=== PATIENT | male | born 1950 | race Two or more races ===

== ENCOUNTER 2023-02-13 09:50 | Emergency (ER) | payer BC, OTHER ==
[~2023-02-13] VITALS: Ht 162.6 cm; Wt 74.0 kg
[2023-02-13] MEDS ORDERED: IOHEXOL 300 MG/ML 100ML BOTTLE IJ ONE (10:21)
[2023-02-13 10:42] LABS: Basophils # (auto) 0 10 ^3/uL (0-0.2); Basophils % (auto) 0.5 % (0.0-2.0); Eosinophils # (auto) 0 10 ^3/uL (0-0.8); Eosinophils % (auto) 0.4 % (0.0-7.0); Hematocrit 41.9 % (41.0-53.0); Hemoglobin 14.6 g/dL (13.5-17.5); Lymphocytes % (auto) 12.5 % (10.0-50.0); Mean Corpuscular Hemoglobin 32.5 pg (28.0-32.0); Mean Corpuscular Hgb Conc. 34.7 g/dL (32.0-36.0); Mean Corpuscular Volume 93.5 fL (80.0-100.0); Monocytes # (auto) 0.3 10 ^3/uL (0-1.3); Monocytes % (auto) 4.3 % (0.0-12.0); Neutrophils # (auto) 6.6 10 ^3/uL (1.6-8.6); Neutrophils % (auto) 82.3 % (37.0-80.0); Nucleated Red Blood Cells % 0.2 %; Red Blood Cells 4.48 10^6/uL (4.5-5.90); Red Cell Distribution Width 13.2 % (11.8-14.3)
[2023-02-13] MEDS ORDERED: ETOMIDATE (2MG/ML) 20ML VIAL IV ONE ×2 (10:58→11:15)
[2023-02-13] MEDS ORDERED: ROCURONIUM 10MG/ML 10ML VIAL IV ONE ×2 (10:59→11:15)
[2023-02-13] MEDS ORDERED: fentaNYL CITRATE 100 MCG/2 ML VL IV ONE (11:00)
[2023-02-13] MEDS ORDERED: PROPOFOL 100 ML IV ONE (11:03)
[2023-02-13] MEDS ORDERED: fentaNYL CITRATE 100 MCG/2 ML VL ONE (11:03)
[2023-02-13 11:05] LABS: INR 0.98 (0.9-1.15)
[2023-02-13 11:15] LABS: Acetaminophen 3.6 ug/mL (10-30); Salicylate < 1.7 mg/dL (2.8-20.0)
[2023-02-13 11:16] LABS: Albumin 3.9 g/dL (3.4-5.0); Blood Urea Nitrogen 19 mg/dL (7-18); Chloride 105 mmol/L (98-107); Magnesium 1.5 mg/dL (1.6-2.6); Potassium 4.4 mmol/L (3.5-5.1); Sodium 135 mmol/L (136-145)
[2023-02-13 11:22] LABS: Alanine Aminotransferase 28 U/L (16-61); Alkaline Phosphatase 125 U/L (45-117); Anion Gap 6 (5-15); Aspartate Aminotransferase 25 U/L (15-37); BUN/Creatinine Ratio 20.2 (10.0-20.0); Bilirubin, Total 0.4 mg/dL (0.2-1.0); Blood Alcohol < 3.0 mg/dL (0-5); Calcium 9.1 mg/dL (8.5-10.1); Carbon Dioxide 24 mmol/L (21-32); GFR African American 101 mL/min; GFR Non-African American 83 mL/min; Glucose 203 mg/dL (74-106); Lipase 276 U/L (73-393); Total Protein 7.1 g/dL (6.4-8.2)
[2023-02-13 11:50] VITALS: BP 150/81
[2023-02-13] MEDS ORDERED: PROPOFOL 100 ML IV SCH (12:00)
[2023-02-13] MEDS ORDERED: NALOXONE HCL 1MG/ML 2ML SYRINGE IV ONE ×2 (13:45)
== END 2023-02-13 12:48 | disposition short-term general hospital (02) ==
LOC: ER 09:50
DX: I62.9 Nontraumatic intracranial hemorrhage, unspecified (principal); R41.82 Altered mental status, unspecified; E11.9 Type 2 diabetes mellitus without complications; I10 Essential (primary) hypertension
CPT/HCPCS: 31500; 36415; 70450; 71045; 80053; 80320; 80329; 82140; 83690; 83735; 83880; 84100; 84443; 84484; 85025; 85610; 86850; 86900; 86901; 93005; 96374; 96375; 99291; J2704; J3010; 94002; 99152

== ENCOUNTER 2023-03-08 20:16 | Inpatient (IN) | payer OTHER ==
[~2023-03-08] VITALS: Ht 30.5 cm; Wt 82.6 kg
[2023-03-09] VITALS (7 sets, daily range): BP systolic 126–140; BP diastolic 78–89
[2023-03-09] MEDS ORDERED: ACETAMINOPHEN 325 MG TAB PO PRN (03:15)
[2023-03-09] MEDS: SODIUM CHLORIDE 0.9% 1,000 ML IV SCH ×2 (03:15→16:35)
[2023-03-09] MEDS ORDERED: ONDANSETRON HCL 4 MG/2 ML VIAL IV PRN (03:15)
[2023-03-09] MEDS ORDERED: MORPHINE SULFATE INJ 2 MG/ml SYRG IV PRN (03:15)
[2023-03-09] MEDS ORDERED: NITROGLYCERIN 0.4 MG SL TAB SL PRN (03:15)
[2023-03-09] MEDS: SODIUM CHLORIDE 1 GM TAB PO SCH ×3 (05:34→22:04)
[2023-03-09 05:57] LABS: Basophils # (auto) 0 10 ^3/uL (0-0.2); Basophils % (auto) 0.6 % (0.0-2.0); Eosinophils # (auto) 0.4 10 ^3/uL (0-0.8); Eosinophils % (auto) 4.9 % (0.0-7.0); Hematocrit 34.9 % (41.0-53.0); Hemoglobin 11.8 g/dL (13.5-17.5); Lymphocytes # (auto) 1.5 10 ^3/uL (0.4-5.4); Lymphocytes % (auto) 18.3 % (10.0-50.0); Mean Corpuscular Hemoglobin 31.7 pg (28.0-32.0); Mean Corpuscular Hgb Conc. 33.9 g/dL (32.0-36.0); Mean Corpuscular Volume 93.7 fL (80.0-100.0); Monocytes # (auto) 0.6 10 ^3/uL (0-1.3); Monocytes % (auto) 7.7 % (0.0-12.0); Neutrophils # (auto) 5.5 10 ^3/uL (1.6-8.6); Neutrophils % (auto) 68.5 % (37.0-80.0); Nucleated Red Blood Cells % 0.2 %; Red Blood Cells 3.72 10^6/uL (4.5-5.90); Red Cell Distribution Width 13.3 % (11.8-14.3); White Blood Cell 8.1 10^3/uL (4.4-10.8)
[2023-03-09 06:01] LABS: INR 1.06 (0.9-1.15); Partial Thromboplastin Time 27.1 sec (24.6-33.4)
[2023-03-09 06:13] LABS: Albumin 2.1 g/dL (3.4-5.0); Calcium 8.8 mg/dL (8.5-10.1); Potassium 4.3 mmol/L (3.5-5.1)
[2023-03-09 06:18] LABS: BUN/Creatinine Ratio 36.4 (10.0-20.0); Bilirubin, Total 0.4 mg/dL (0.2-1.0); Total Protein 6.4 g/dL (6.4-8.2)
[2023-03-09] MEDS ORDERED: PANTOPRAZOLE 40 MG/10 ML VIAL INJ IV SCH (10:00)
[2023-03-09] MEDS: METOPROLOL TARTRATE 25 MG TAB PO SCH ×2 (10:28→22:03)
[2023-03-09] MEDS: FLUCONAZOLE 100 MG TAB PO SCH (10:28)
[2023-03-09] MEDS: ENOXAPARIN SOD 40 MG/0.4 ML SYRINGE SC SCH (10:28)
[2023-03-09] MEDS: levETIRAcetam 500 MG/5ML ORAL SOLN UD GT SCH ×2 (10:32→22:04)
[2023-03-09] MEDS ORDERED: DEXTROSE (50%) 50ML SYRG IV PRN (16:00)
[2023-03-09] MEDS: InsuLIN REG 1unit/0.01ml Soln (100units/ml) SC SCH ×2 (17:00→22:00)
[2023-03-09] MEDS: ACCU-CHEK COMFORT CURVE STRIP VI SCH ×2 (17:00→22:03)
[2023-03-09 21:50] LABS: Urine Bacteria NONE SEEN /hpf (None Seen); Urine Blood Negative /uL (Negative); Urine Hyaline Cast FEW /lpf (0 - 2); Urine Specific Gravity 1.018 (1.001-1.035); Urine WBC 1 /hpf (0 - 3)
[2023-03-09] MEDS: ATORVASTATIN 20 MG TAB PO SCH (22:04)
[2023-03-10 05:26] VITALS: BP 117/81
[2023-03-10] MEDS: SODIUM CHLORIDE 0.9% 1,000 ML IV SCH (05:55)
[2023-03-10 05:59] LABS: Basophils # (auto) 0.1 10 ^3/uL (0-0.2); Eosinophils # (auto) 0.5 10 ^3/uL (0-0.8); Eosinophils % (auto) 7.1 % (0.0-7.0); Hematocrit 33.1 % (41.0-53.0); Hemoglobin 11.2 g/dL (13.5-17.5); Lymphocytes # (auto) 1.4 10 ^3/uL (0.4-5.4); Lymphocytes % (auto) 20.8 % (10.0-50.0); Mean Corpuscular Hemoglobin 31.4 pg (28.0-32.0); Mean Corpuscular Hgb Conc. 33.9 g/dL (32.0-36.0); Mean Corpuscular Volume 92.5 fL (80.0-100.0); Monocytes # (auto) 0.6 10 ^3/uL (0-1.3); Monocytes % (auto) 8.7 % (0.0-12.0); Neutrophils # (auto) 4.3 10 ^3/uL (1.6-8.6); Neutrophils % (auto) 62.4 % (37.0-80.0); Nucleated Red Blood Cells % 0.2 %; Red Blood Cells 3.58 10^6/uL (4.5-5.90); Red Cell Distribution Width 13.6 % (11.8-14.3); White Blood Cell 6.9 10^3/uL (4.4-10.8)
[2023-03-10 06:20] LABS: Calcium 8.6 mg/dL (8.5-10.1); Potassium 4.3 mmol/L (3.5-5.1)
[2023-03-10 06:32] LABS: BUN/Creatinine Ratio 38.3 (10.0-20.0); Bilirubin, Total 0.4 mg/dL (0.2-1.0); Total Protein 6.2 g/dL (6.4-8.2)
[2023-03-10] MEDS: ACCU-CHEK COMFORT CURVE STRIP VI SCH ×4 (06:46→23:13)
[2023-03-10] MEDS: InsuLIN REG 1unit/0.01ml Soln (100units/ml) SC SCH ×4 (06:51→22:36)
[2023-03-10] MEDS: SODIUM CHLORIDE 1 GM TAB PO SCH ×3 (07:00→22:54)
[2023-03-10 08:48] VITALS: BP 142/85
[2023-03-10] MEDS: METOPROLOL TARTRATE 25 MG TAB PO SCH ×2 (09:53→22:53)
[2023-03-10] MEDS: FLUCONAZOLE 100 MG TAB PO SCH (09:53)
[2023-03-10] MEDS: ENOXAPARIN SOD 40 MG/0.4 ML SYRINGE SC SCH (09:54)
[2023-03-10] MEDS: levETIRAcetam 500 MG/5ML ORAL SOLN UD GT SCH ×2 (09:54→22:55)
[2023-03-10 13:00] VITALS: BP 128/82
[2023-03-10] MEDS: Glucerna 1.2 Cal 1Liter BOTTLE GT SCH (14:20)
[2023-03-10 16:58] VITALS: BP 132/77
[2023-03-10 20:00] VITALS: BP 131/80
[2023-03-10 22:00] VITALS: BP 131/80
[2023-03-10] MEDS: ATORVASTATIN 20 MG TAB PO SCH (22:53)
[2023-03-11 05:00] VITALS: BP 141/75
[2023-03-11 06:14] LABS: Hematocrit 34.1 % (41.0-53.0); Hemoglobin 11.6 g/dL (13.5-17.5); Mean Corpuscular Hemoglobin 31.9 pg (28.0-32.0); Mean Corpuscular Hgb Conc. 34.1 g/dL (32.0-36.0); Mean Corpuscular Volume 93.7 fL (80.0-100.0); Potassium 4.4 mmol/L (3.5-5.1); Red Blood Cells 3.64 10^6/uL (4.5-5.90); Red Cell Distribution Width 13.9 % (11.8-14.3); White Blood Cell 6.6 10^3/uL (4.4-10.8)
[2023-03-11 06:20] LABS: Band Neutrophils % (manual) 0; Basophils % (manual) 0 (0.0-2.0); Blast Cells 0; Metamyelocytes % 0; Myelocytes % 0; Promyelocytes % 0; Reactive Lymphocytes 0
[2023-03-11 06:22] LABS: BUN/Creatinine Ratio 41.2 (10.0-20.0); Bilirubin, Total 0.3 mg/dL (0.2-1.0); Calcium 8.5 mg/dL (8.5-10.1); Total Protein 6.2 g/dL (6.4-8.2)
[2023-03-11] MEDS: InsuLIN REG 1unit/0.01ml Soln (100units/ml) SC SCH ×4 (06:35→22:56)
[2023-03-11] MEDS: SODIUM CHLORIDE 1 GM TAB PO SCH ×3 (06:38→23:13)
[2023-03-11 07:37] LABS: Eosinophils % (manual) 6 (0-7); Lymphocytes % (manual) 20 (10.0-50.0); Monocytes % (manual) 8 (0-12)
[2023-03-11] MEDS: ACCU-CHEK COMFORT CURVE STRIP VI SCH ×4 (08:00→23:57)
[2023-03-11 09:00] VITALS: BP 144/76
[2023-03-11] MEDS: FLUCONAZOLE 100 MG TAB PO SCH (11:13)
[2023-03-11] MEDS: ENOXAPARIN SOD 40 MG/0.4 ML SYRINGE SC SCH (11:13)
[2023-03-11] MEDS: levETIRAcetam 500 MG/5ML ORAL SOLN UD GT SCH ×2 (11:15→23:04)
[2023-03-11] MEDS: PANTOPRAZOLE 40 MG/10 ML VIAL INJ IV SCH (11:19)
[2023-03-11] MEDS: METOPROLOL TARTRATE 25 MG TAB PO SCH ×2 (11:20→23:05)
[2023-03-11 13:00] VITALS: BP 132/81
[2023-03-11 17:00] VITALS: BP 137/80
[2023-03-11 22:00] VITALS: BP 143/68
[2023-03-11] MEDS: ATORVASTATIN 20 MG TAB PO SCH (23:04)
[2023-03-12] MEDS: Glucerna 1.2 Cal 1Liter BOTTLE GT SCH (02:29)
[2023-03-12 05:00] VITALS: BP 132/71
[2023-03-12] MEDS: ACCU-CHEK COMFORT CURVE STRIP VI SCH ×4 (06:15→21:51)
[2023-03-12] MEDS: InsuLIN REG 1unit/0.01ml Soln (100units/ml) SC SCH ×4 (06:20→21:51)
[2023-03-12] MEDS: SODIUM CHLORIDE 1 GM TAB PO SCH ×3 (07:22→21:27)
[2023-03-12 08:36] VITALS: BP 145/74
[2023-03-12] MEDS: FLUCONAZOLE 100 MG TAB PO SCH (10:57)
[2023-03-12] MEDS: METOPROLOL TARTRATE 25 MG TAB PO SCH ×2 (10:58→21:28)
[2023-03-12] MEDS: levETIRAcetam 500 MG/5ML ORAL SOLN UD GT SCH ×2 (10:58→21:27)
[2023-03-12] MEDS: ENOXAPARIN SOD 40 MG/0.4 ML SYRINGE SC SCH (11:00)
[2023-03-12] MEDS: PANTOPRAZOLE 40 MG/10 ML VIAL INJ IV SCH (11:06)
[2023-03-12 13:00] VITALS: BP 132/86
[2023-03-12 17:00] VITALS: BP 149/82
[2023-03-12] MEDS: ATORVASTATIN 20 MG TAB PO SCH (21:28)
[2023-03-12 22:00] VITALS: BP 134/84
[2023-03-13 05:00] VITALS: BP 137/81
[2023-03-13] MEDS: ACCU-CHEK COMFORT CURVE STRIP VI SCH ×4 (06:22→22:26)
[2023-03-13] MEDS: InsuLIN REG 1unit/0.01ml Soln (100units/ml) SC SCH ×4 (06:22→22:48)
[2023-03-13] MEDS: SODIUM CHLORIDE 1 GM TAB PO SCH ×3 (07:00→22:00)
[2023-03-13 09:00] VITALS: BP 126/71
[2023-03-13] MEDS: FLUCONAZOLE 100 MG TAB PO SCH (09:25)
[2023-03-13] MEDS: PANTOPRAZOLE 40 MG/10 ML VIAL INJ IV SCH (09:25)
[2023-03-13] MEDS: METOPROLOL TARTRATE 25 MG TAB PO SCH ×2 (09:26→22:26)
[2023-03-13] MEDS: ENOXAPARIN SOD 40 MG/0.4 ML SYRINGE SC SCH (10:43)
[2023-03-13] MEDS: levETIRAcetam 500 MG/5ML ORAL SOLN UD GT SCH ×2 (10:44→22:25)
[2023-03-13 13:00] VITALS: BP 148/83
[2023-03-13] MEDS: Glucerna 1.2 Cal 1Liter BOTTLE GT SCH (15:15)
[2023-03-13] MEDS ORDERED: LACTULOSE 20Gm/30ML SOLN PO ONE (15:15)
[2023-03-13 16:42] VITALS: BP 146/84
[2023-03-13 22:00] VITALS: BP 148/81
[2023-03-13] MEDS: ATORVASTATIN 20 MG TAB PO SCH (22:25)
[2023-03-14 05:00] VITALS: BP 130/85
[2023-03-14] MEDS: ACCU-CHEK COMFORT CURVE STRIP VI SCH ×4 (06:05→22:07)
[2023-03-14] MEDS: InsuLIN REG 1unit/0.01ml Soln (100units/ml) SC SCH ×4 (06:05→22:00)
[2023-03-14 09:00] VITALS: BP 147/77
[2023-03-14] MEDS: ENOXAPARIN SOD 40 MG/0.4 ML SYRINGE SC SCH (09:32)
[2023-03-14] MEDS: PANTOPRAZOLE 40 MG/10 ML VIAL INJ IV SCH (09:32)
[2023-03-14] MEDS: FLUCONAZOLE 100 MG TAB PO SCH (09:32)
[2023-03-14] MEDS: METOPROLOL TARTRATE 25 MG TAB PO SCH ×2 (09:33→22:07)
[2023-03-14] MEDS: levETIRAcetam 500 MG/5ML ORAL SOLN UD GT SCH ×2 (09:35→22:06)
[2023-03-14 13:00] VITALS: BP 129/66
[2023-03-14] MEDS: Glucerna 1.2 Cal 1Liter BOTTLE GT SCH (14:25)
[2023-03-14] MEDS: SODIUM CHLORIDE 1 GM TAB PO SCH ×2 (14:25→22:00)
[2023-03-14 17:00] VITALS: BP 117/66
[2023-03-14 22:00] VITALS: BP 139/86
[2023-03-14] MEDS: ATORVASTATIN 20 MG TAB PO SCH (22:06)
[2023-03-15 05:00] VITALS: BP 136/81
[2023-03-15] MEDS: SODIUM CHLORIDE 1 GM TAB PO SCH ×3 (06:00→22:59)
[2023-03-15] MEDS: InsuLIN REG 1unit/0.01ml Soln (100units/ml) SC SCH ×5 (06:01→23:06)
[2023-03-15] MEDS: ACCU-CHEK COMFORT CURVE STRIP VI SCH ×4 (06:05→23:02)
[2023-03-15 09:00] VITALS: BP 134/86
[2023-03-15] MEDS: FLUCONAZOLE 100 MG TAB PO SCH (12:25)
[2023-03-15] MEDS: METOPROLOL TARTRATE 25 MG TAB PO SCH ×2 (12:25→23:00)
[2023-03-15] MEDS: PANTOPRAZOLE 40 MG/10 ML VIAL INJ IV SCH (12:25)
[2023-03-15] MEDS: ENOXAPARIN SOD 40 MG/0.4 ML SYRINGE SC SCH (12:26)
[2023-03-15] MEDS: Glucerna 1.2 Cal 1Liter BOTTLE GT SCH (12:29)
[2023-03-15 13:00] VITALS: BP 147/93
[2023-03-15 17:00] VITALS: BP 144/83
[2023-03-15 22:00] VITALS: BP 163/94
[2023-03-15] MEDS: ATORVASTATIN 20 MG TAB PO SCH (22:59)
[2023-03-15] MEDS: levETIRAcetam 500 MG/5ML ORAL SOLN UD GT SCH (23:02)
[2023-03-16 05:00] VITALS: BP 156/89
[2023-03-16 06:14] LABS: Basophils # (auto) 0 10 ^3/uL (0-0.2); Basophils % (auto) 0.6 % (0.0-2.0); Eosinophils # (auto) 0.3 10 ^3/uL (0-0.8); Eosinophils % (auto) 3.9 % (0.0-7.0); Hematocrit 38.6 % (41.0-53.0); Hemoglobin 12.9 g/dL (13.5-17.5); Lymphocytes # (auto) 1.1 10 ^3/uL (0.4-5.4); Lymphocytes % (auto) 17.4 % (10.0-50.0); Mean Corpuscular Hemoglobin 31.4 pg (28.0-32.0); Mean Corpuscular Hgb Conc. 33.4 g/dL (32.0-36.0); Mean Corpuscular Volume 94.1 fL (80.0-100.0); Monocytes # (auto) 0.5 10 ^3/uL (0-1.3); Monocytes % (auto) 8.1 % (0.0-12.0); Neutrophils # (auto) 4.6 10 ^3/uL (1.6-8.6); Nucleated Red Blood Cells % 0.2 %; Red Cell Distribution Width 14.2 % (11.8-14.3); White Blood Cell 6.5 10^3/uL (4.4-10.8)
[2023-03-16] MEDS: ACCU-CHEK COMFORT CURVE STRIP VI SCH ×4 (06:16→22:57)
[2023-03-16] MEDS: SODIUM CHLORIDE 1 GM TAB PO SCH ×3 (06:16→22:29)
[2023-03-16] MEDS: InsuLIN REG 1unit/0.01ml Soln (100units/ml) SC SCH ×4 (06:25→22:51)
[2023-03-16 06:32] LABS: Potassium 4.2 mmol/L (3.5-5.1)
[2023-03-16 06:40] LABS: Albumin 2.3 g/dL (3.4-5.0); BUN/Creatinine Ratio 36.2 (10.0-20.0); Bilirubin, Total 0.3 mg/dL (0.2-1.0); Calcium 9.2 mg/dL (8.5-10.1); Magnesium 1.9 mg/dL (1.6-2.6); Total Protein 6.6 g/dL (6.4-8.2)
[2023-03-16 08:00] VITALS: BP_SYST 156; BP_DIAS 65; BP_DIAS 86
[2023-03-16 12:00] VITALS: BP 154/92
[2023-03-16] MEDS: levETIRAcetam 500 MG/5ML ORAL SOLN UD GT SCH ×2 (12:19→22:28)
[2023-03-16] MEDS: FLUCONAZOLE 100 MG TAB PO SCH (12:19)
[2023-03-16] MEDS: METOPROLOL TARTRATE 25 MG TAB PO SCH ×2 (12:19→22:29)
[2023-03-16] MEDS: PANTOPRAZOLE 40 MG/10 ML VIAL INJ IV SCH (12:19)
[2023-03-16] MEDS: ENOXAPARIN SOD 40 MG/0.4 ML SYRINGE SC SCH (12:20)
[2023-03-16 16:00] VITALS: BP 148/91
[2023-03-16 20:00] VITALS: BP 144/87
[2023-03-16 21:43] VITALS: BP 144/87
[2023-03-16] MEDS: ATORVASTATIN 20 MG TAB PO SCH (22:29)
[2023-03-16] MEDS: ACETAMINOPHEN 650 mg PER 20.3 mL UD GT PRN (22:42)
[2023-03-17] MEDS: InsuLIN REG 1unit/0.01ml Soln (100units/ml) SC SCH ×4 (00:29→17:02)
[2023-03-17 04:33] VITALS: BP 158/90
[2023-03-17] MEDS: SODIUM CHLORIDE 1 GM TAB PO SCH ×2 (06:35→13:11)
[2023-03-17] MEDS: ACCU-CHEK COMFORT CURVE STRIP VI SCH ×4 (06:46→22:45)
[2023-03-17 08:00] VITALS: BP 149/82
[2023-03-17] MEDS: FLUCONAZOLE 100 MG TAB PO SCH (10:35)
[2023-03-17] MEDS: ACETAMINOPHEN 650 mg PER 20.3 mL UD GT PRN (10:35)
[2023-03-17] MEDS: PANTOPRAZOLE 40 MG/10 ML VIAL INJ IV SCH (10:35)
[2023-03-17] MEDS: ENOXAPARIN SOD 40 MG/0.4 ML SYRINGE SC SCH (10:35)
[2023-03-17] MEDS: METOPROLOL TARTRATE 25 MG TAB PO SCH (10:36)
[2023-03-17] MEDS: levETIRAcetam 500 MG/5ML ORAL SOLN UD GT SCH ×2 (10:37→22:45)
[2023-03-17 12:00] VITALS: BP 150/86
[2023-03-17] MEDS: Glucerna 1.2 Cal 1Liter BOTTLE GT SCH (13:11)
[2023-03-17 16:00] VITALS: BP 158/89
[2023-03-17] MEDS ORDERED: LOSARTAN POTASSIUM 50 MG TAB PO ONE (16:30)
[2023-03-17 22:00] VITALS: BP 139/80
[2023-03-17] MEDS: ATORVASTATIN 20 MG TAB PO SCH (22:45)
[2023-03-18] MEDS: SODIUM CHLORIDE 1 GM TAB PO SCH ×3 (00:12→14:12)
[2023-03-18 05:00] VITALS: BP 148/86
[2023-03-18] MEDS: InsuLIN REG 1unit/0.01ml Soln (100units/ml) SC SCH ×4 (06:28→22:00)
[2023-03-18] MEDS: ACCU-CHEK COMFORT CURVE STRIP VI SCH ×4 (06:31→22:00)
[2023-03-18 09:00] VITALS: BP 153/89
[2023-03-18] MEDS ORDERED: LOSARTAN POTASSIUM 50 MG TAB PO SCH (10:00)
[2023-03-18] MEDS: ENOXAPARIN SOD 40 MG/0.4 ML SYRINGE SC SCH (10:50)
[2023-03-18] MEDS: FLUCONAZOLE 100 MG TAB PO SCH (10:51)
[2023-03-18] MEDS: METOPROLOL TARTRATE 25 MG TAB PO SCH ×2 (10:52)
[2023-03-18] MEDS: PANTOPRAZOLE 40 MG/10 ML VIAL INJ IV SCH (10:53)
[2023-03-18] MEDS: levETIRAcetam 500 MG/5ML ORAL SOLN UD GT SCH (10:54)
[2023-03-18] MEDS: Glucerna 1.2 Cal 1Liter BOTTLE GT SCH (13:52)
[2023-03-18 17:00] VITALS: BP 130/47
[2023-03-18 20:00] VITALS: BP 158/91
[2023-03-18 22:00] VITALS: BP 158/91
[2023-03-18] MEDS: ATORVASTATIN 20 MG TAB PO SCH (22:00)
[2023-03-19] MEDS: levETIRAcetam 500 MG/5ML ORAL SOLN UD GT SCH ×3 (00:02→23:16)
[2023-03-19] MEDS: SODIUM CHLORIDE 1 GM TAB PO SCH ×4 (00:03→23:12)
[2023-03-19] MEDS: METOPROLOL TARTRATE 25 MG TAB PO SCH ×3 (00:04→23:16)
[2023-03-19 04:47] VITALS: BP 186/75
[2023-03-19] MEDS: hydrALAZINE HCL 20 MG/ML VL IV PRN (05:38)
[2023-03-19] MEDS: InsuLIN REG 1unit/0.01ml Soln (100units/ml) SC SCH ×5 (06:28→23:17)
[2023-03-19] MEDS: ACCU-CHEK COMFORT CURVE STRIP VI SCH ×4 (06:42→23:17)
[2023-03-19 08:00] VITALS: BP 114/69
[2023-03-19 09:00] VITALS: BP 114/69
[2023-03-19] MEDS: PANTOPRAZOLE 40 MG/10 ML VIAL INJ IV SCH (10:17)
[2023-03-19] MEDS: ENOXAPARIN SOD 40 MG/0.4 ML SYRINGE SC SCH (10:18)
[2023-03-19] MEDS: FLUCONAZOLE 100 MG TAB PO SCH (10:18)
[2023-03-19] MEDS: LOSARTAN POTASSIUM 50 MG TAB PO SCH (10:19)
[2023-03-19 12:57] VITALS: BP 151/85
[2023-03-19 17:19] VITALS: BP 141/80
[2023-03-19 22:00] VITALS: BP 125/69
[2023-03-19] MEDS: ATORVASTATIN 20 MG TAB PO SCH (23:15)
[2023-03-20 04:56] VITALS: BP 140/73
[2023-03-20] MEDS: SODIUM CHLORIDE 1 GM TAB PO SCH ×3 (05:54→22:32)
[2023-03-20] MEDS: ACCU-CHEK COMFORT CURVE STRIP VI SCH ×4 (06:07→22:32)
[2023-03-20 08:00] VITALS: BP 116/67
[2023-03-20 09:09] VITALS: BP 116/67
[2023-03-20] MEDS: FLUCONAZOLE 100 MG TAB PO SCH (10:36)
[2023-03-20] MEDS: METOPROLOL TARTRATE 25 MG TAB PO SCH ×2 (10:36→22:31)
[2023-03-20] MEDS: PANTOPRAZOLE 40 MG/10 ML VIAL INJ IV SCH (10:37)
[2023-03-20] MEDS: LOSARTAN POTASSIUM 50 MG TAB PO SCH (10:37)
[2023-03-20] MEDS: ENOXAPARIN SOD 40 MG/0.4 ML SYRINGE SC SCH (10:37)
[2023-03-20] MEDS: levETIRAcetam 500 MG/5ML ORAL SOLN UD GT SCH ×2 (10:38→22:00)
[2023-03-20] MEDS: InsuLIN REG 1unit/0.01ml Soln (100units/ml) SC SCH ×4 (12:41→23:08)
[2023-03-20 13:51] VITALS: BP 145/85
[2023-03-20 16:42] VITALS: BP 147/67
[2023-03-20 22:00] VITALS: BP 128/65
[2023-03-20] MEDS: ATORVASTATIN 20 MG TAB PO SCH (22:30)
[2023-03-21] MEDS: Glucerna 1.2 Cal 1Liter BOTTLE GT SCH ×2 (00:33→21:56)
[2023-03-21 05:00] VITALS: BP 123/66
[2023-03-21] MEDS: SODIUM CHLORIDE 1 GM TAB PO SCH (05:42)
[2023-03-21 05:56] LABS: BUN/Creatinine Ratio 34.4 (10.0-20.0); Calcium 9.3 mg/dL (8.5-10.1); Potassium 3.9 mmol/L (3.5-5.1)
[2023-03-21 06:24] LABS: Basophils # (auto) 0 10 ^3/uL (0-0.2); Basophils % (auto) 0.6 % (0.0-2.0); Eosinophils # (auto) 0.3 10 ^3/uL (0-0.8); Eosinophils % (auto) 3.8 % (0.0-7.0); Hematocrit 39.6 % (41.0-53.0); Hemoglobin 12.7 g/dL (13.5-17.5); Lymphocytes # (auto) 1.3 10 ^3/uL (0.4-5.4); Lymphocytes % (auto) 16.3 % (10.0-50.0); Mean Corpuscular Hemoglobin 30.6 pg (28.0-32.0); Mean Corpuscular Hgb Conc. 32.1 g/dL (32.0-36.0); Mean Corpuscular Volume 95.3 fL (80.0-100.0); Monocytes # (auto) 0.6 10 ^3/uL (0-1.3); Monocytes % (auto) 7.3 % (0.0-12.0); Neutrophils # (auto) 5.8 10 ^3/uL (1.6-8.6); Nucleated Red Blood Cells % 0.4 %; Red Blood Cells 4.16 10^6/uL (4.5-5.90); Red Cell Distribution Width 14.8 % (11.8-14.3); White Blood Cell 8.1 10^3/uL (4.4-10.8)
[2023-03-21] MEDS: ACCU-CHEK COMFORT CURVE STRIP VI SCH ×4 (06:25→22:06)
[2023-03-21] MEDS: InsuLIN REG 1unit/0.01ml Soln (100units/ml) SC SCH ×4 (06:31→22:06)
[2023-03-21 08:00] VITALS: BP 158/64
[2023-03-21] MEDS ORDERED: FREE WATER GT ONE (08:45)
[2023-03-21 09:00] VITALS: BP 158/81
[2023-03-21] MEDS: PANTOPRAZOLE 40 MG/10 ML VIAL INJ IV SCH (09:49)
[2023-03-21] MEDS: FLUCONAZOLE 100 MG TAB PO SCH (09:51)
[2023-03-21] MEDS: levETIRAcetam 500 MG/5ML ORAL SOLN UD GT SCH ×2 (09:51→21:47)
[2023-03-21] MEDS: LOSARTAN POTASSIUM 50 MG TAB PO SCH (09:52)
[2023-03-21] MEDS: METOPROLOL TARTRATE 25 MG TAB PO SCH ×2 (09:52→21:46)
[2023-03-21] MEDS: hydrALAZINE HCL 20 MG/ML VL IV PRN (11:39)
[2023-03-21] MEDS ORDERED: FREE WATER GT SCH (12:00)
[2023-03-21] MEDS: FREE WATER GT SCH ×2 (12:25→17:45)
[2023-03-21 13:00] VITALS: BP 147/74
[2023-03-21 17:00] VITALS: BP 159/89
[2023-03-21] MEDS: ATORVASTATIN 20 MG TAB PO SCH (21:46)
[2023-03-21 22:00] VITALS: BP 159/85
[2023-03-22 05:00] VITALS: BP 136/86
[2023-03-22 06:24] LABS: BUN/Creatinine Ratio 28.8 (10.0-20.0); Calcium 9.4 mg/dL (8.5-10.1); Potassium 3.6 mmol/L (3.5-5.1)
[2023-03-22] MEDS: ACCU-CHEK COMFORT CURVE STRIP VI SCH ×4 (06:24→22:02)
[2023-03-22] MEDS: FREE WATER GT SCH ×2 (06:29)
[2023-03-22] MEDS: InsuLIN REG 1unit/0.01ml Soln (100units/ml) SC SCH ×4 (06:30→22:04)
[2023-03-22 09:00] VITALS: BP 134/75
[2023-03-22] MEDS: PANTOPRAZOLE 40 MG/10 ML VIAL INJ IV SCH (10:02)
[2023-03-22] MEDS: FLUCONAZOLE 100 MG TAB PO SCH (10:08)
[2023-03-22] MEDS: LOSARTAN POTASSIUM 50 MG TAB PO SCH (10:11)
[2023-03-22] MEDS: METOPROLOL TARTRATE 25 MG TAB PO SCH ×2 (10:11→21:59)
[2023-03-22] MEDS: levETIRAcetam 500 MG/5ML ORAL SOLN UD GT SCH ×2 (10:17→21:59)
[2023-03-22 13:00] VITALS: BP_SYST 141; BP_SYST 149; BP_DIAS 58; BP_DIAS 96
[2023-03-22 16:30] VITALS: BP 115/78
[2023-03-22] MEDS: ATORVASTATIN 20 MG TAB PO SCH (21:58)
[2023-03-22 22:00] VITALS: BP 129/80
[2023-03-23] VITALS (7 sets, daily range): BP systolic 106–150; BP diastolic 70–97
[2023-03-23] MEDS: ACCU-CHEK COMFORT CURVE STRIP VI SCH ×4 (06:40→22:30)
[2023-03-23] MEDS: InsuLIN REG 1unit/0.01ml Soln (100units/ml) SC SCH ×4 (06:42→22:31)
[2023-03-23] MEDS: PANTOPRAZOLE 40 MG/10 ML VIAL INJ IV SCH (09:25)
[2023-03-23] MEDS: FLUCONAZOLE 100 MG TAB PO SCH (09:25)
[2023-03-23] MEDS: METOPROLOL TARTRATE 25 MG TAB PO SCH ×2 (09:25→22:33)
[2023-03-23] MEDS: levETIRAcetam 500 MG/5ML ORAL SOLN UD GT SCH ×2 (09:26→22:00)
[2023-03-23] MEDS: LOSARTAN POTASSIUM 50 MG TAB PO SCH (09:26)
[2023-03-23] MEDS: Glucerna 1.2 Cal 1Liter BOTTLE GT SCH (17:12)
[2023-03-23] MEDS: ATORVASTATIN 20 MG TAB PO SCH (22:32)
[2023-03-24 05:00] VITALS: BP 144/89
[2023-03-24] MEDS: ACCU-CHEK COMFORT CURVE STRIP VI SCH ×4 (06:27→21:36)
[2023-03-24] MEDS: InsuLIN REG 1unit/0.01ml Soln (100units/ml) SC SCH ×4 (06:33→21:50)
[2023-03-24 08:30] VITALS: BP 136/80
[2023-03-24] MEDS: levETIRAcetam 500 MG/5ML ORAL SOLN UD GT SCH ×3 (09:19→21:36)
[2023-03-24] MEDS: PANTOPRAZOLE 40 MG/10 ML VIAL INJ IV SCH (09:22)
[2023-03-24] MEDS: LOSARTAN POTASSIUM 50 MG TAB PO SCH (09:23)
[2023-03-24] MEDS: METOPROLOL TARTRATE 25 MG TAB PO SCH ×2 (09:23→21:35)
[2023-03-24] MEDS: FLUCONAZOLE 100 MG TAB PO SCH (09:24)
[2023-03-24] MEDS: FLORASTOR (S. BOULARDII) 250 MG CAP PO SCH (11:21)
[2023-03-24 16:54] VITALS: BP 126/76
[2023-03-24 20:00] VITALS: BP 121/74
[2023-03-24] MEDS: ATORVASTATIN 20 MG TAB PO SCH (21:35)
[2023-03-24 22:00] VITALS: BP 121/74
[2023-03-25] MEDS: ACETAMINOPHEN 650 mg PER 20.3 mL UD GT PRN (03:52)
[2023-03-25 04:43] LABS: Basophils # (auto) 0.1 10 ^3/uL (0-0.2); Basophils % (auto) 0.9 % (0.0-2.0); Eosinophils # (auto) 0.2 10 ^3/uL (0-0.8); Eosinophils % (auto) 2.2 % (0.0-7.0); Hematocrit 39.6 % (41.0-53.0); Hemoglobin 13.1 g/dL (13.5-17.5); Lymphocytes # (auto) 1.2 10 ^3/uL (0.4-5.4); Lymphocytes % (auto) 11.6 % (10.0-50.0); Mean Corpuscular Hgb Conc. 33.2 g/dL (32.0-36.0); Mean Corpuscular Volume 93.4 fL (80.0-100.0); Monocytes # (auto) 0.7 10 ^3/uL (0-1.3); Monocytes % (auto) 7.4 % (0.0-12.0); Neutrophils # (auto) 7.8 10 ^3/uL (1.6-8.6); Neutrophils % (auto) 77.9 % (37.0-80.0); Nucleated Red Blood Cells % 0.1 %; Red Blood Cells 4.24 10^6/uL (4.5-5.90)
[2023-03-25 05:00] VITALS: BP 121/87
[2023-03-25 05:03] LABS: Albumin 2.4 g/dL (3.4-5.0); Calcium 8.9 mg/dL (8.5-10.1); Potassium 4.1 mmol/L (3.5-5.1)
[2023-03-25 05:06] LABS: BUN/Creatinine Ratio 30.4 (10.0-20.0)
[2023-03-25 05:09] LABS: Bilirubin, Total 0.3 mg/dL (0.2-1.0); Total Protein 6.3 g/dL (6.4-8.2)
[2023-03-25] MEDS: ACCU-CHEK COMFORT CURVE STRIP VI SCH ×4 (06:40→22:45)
[2023-03-25] MEDS: InsuLIN REG 1unit/0.01ml Soln (100units/ml) SC SCH ×4 (06:43→22:59)
[2023-03-25 08:00] VITALS: BP 125/86
[2023-03-25] MEDS: PANTOPRAZOLE 40 MG/10 ML VIAL INJ IV SCH (10:34)
[2023-03-25] MEDS: levETIRAcetam 500 MG/5ML ORAL SOLN UD GT SCH ×2 (10:34→22:46)
[2023-03-25] MEDS: LOSARTAN POTASSIUM 50 MG TAB PO SCH (10:44)
[2023-03-25] MEDS: METOPROLOL TARTRATE 25 MG TAB PO SCH ×2 (10:44→22:45)
[2023-03-25] MEDS: FLUCONAZOLE 100 MG TAB PO SCH (10:45)
[2023-03-25] MEDS: FLORASTOR (S. BOULARDII) 250 MG CAP PO SCH (10:46)
[2023-03-25 12:00] VITALS: BP 98/66
[2023-03-25 16:00] VITALS: BP 119/75
[2023-03-25 20:00] VITALS: BP 108/70
[2023-03-25 22:00] VITALS: BP 108/70
[2023-03-25] MEDS: ATORVASTATIN 20 MG TAB PO SCH (22:45)
[2023-03-26 05:00] VITALS: BP 131/69
[2023-03-26] MEDS: ACCU-CHEK COMFORT CURVE STRIP VI SCH ×4 (06:28→23:16)
[2023-03-26] MEDS: InsuLIN REG 1unit/0.01ml Soln (100units/ml) SC SCH ×4 (06:29→23:15)
[2023-03-26 08:00] VITALS: BP 113/78
[2023-03-26] MEDS: FLORASTOR (S. BOULARDII) 250 MG CAP PO SCH (10:24)
[2023-03-26] MEDS: FLUCONAZOLE 100 MG TAB PO SCH (10:24)
[2023-03-26] MEDS: METOPROLOL TARTRATE 25 MG TAB PO SCH ×2 (10:24→22:40)
[2023-03-26] MEDS: LOSARTAN POTASSIUM 50 MG TAB PO SCH (10:24)
[2023-03-26] MEDS: levETIRAcetam 500 MG/5ML ORAL SOLN UD GT SCH ×2 (10:25→22:41)
[2023-03-26] MEDS: PANTOPRAZOLE 40 MG/10 ML VIAL INJ IV SCH (10:25)
[2023-03-26 12:00] VITALS: BP 99/72
[2023-03-26 16:00] VITALS: BP 121/69
[2023-03-26 22:00] VITALS: BP 99/55
[2023-03-26] MEDS: ATORVASTATIN 20 MG TAB PO SCH (22:39)
[2023-03-27 05:00] VITALS: BP 118/59
[2023-03-27] MEDS: ACCU-CHEK COMFORT CURVE STRIP VI SCH ×4 (07:06→22:00)
[2023-03-27] MEDS: InsuLIN REG 1unit/0.01ml Soln (100units/ml) SC SCH ×4 (07:09→22:47)
[2023-03-27 09:15] VITALS: BP 113/71
[2023-03-27] MEDS: PANTOPRAZOLE 40 MG/10 ML VIAL INJ IV SCH (09:57)
[2023-03-27] MEDS: FLORASTOR (S. BOULARDII) 250 MG CAP PO SCH (09:57)
[2023-03-27] MEDS: FLUCONAZOLE 100 MG TAB PO SCH (09:58)
[2023-03-27] MEDS: LOSARTAN POTASSIUM 50 MG TAB PO SCH (09:59)
[2023-03-27] MEDS: levETIRAcetam 500 MG/5ML ORAL SOLN UD GT SCH ×2 (10:01→22:49)
[2023-03-27] MEDS: METOPROLOL TARTRATE 25 MG TAB GT SCH ×2 (10:01→22:48)
[2023-03-27] MEDS: Glucerna 1.2 Cal 1Liter BOTTLE GT SCH (12:00)
[2023-03-27 13:00] VITALS: BP 94/67
[2023-03-27 17:00] VITALS: BP 120/67
[2023-03-27 22:00] VITALS: BP 132/68
[2023-03-27] MEDS ORDERED: ATORVASTATIN 20 MG TAB GT SCH (22:00)
[2023-03-28] MEDS: ACCU-CHEK COMFORT CURVE STRIP VI SCH (05:57)
[2023-03-28] MEDS: InsuLIN REG 1unit/0.01ml Soln (100units/ml) SC SCH (06:15)
[2023-03-28 07:17] VITALS: BP 105/67
== END 2023-03-28 08:27 | DRG 564 ==
LOC: CENTRAL 03-09 00:43 → TELE-CENTR 03-09 00:59 → CENTRAL 03-10 12:18
PROVIDERS: ADMIT Nurse Practitioner Family; ATTEND Internal Medicine
PROC: 0Y9F3ZZ Drainage of Right Knee Region, Percutaneous Approach (ICD-10-PCS; principal; 2023-03-09)
DX: M25.461 Effusion, right knee (principal); I63.512 Cerebral infarction due to unspecified occlusion or stenosis of left middle cerebral artery; E87.1 Hypo-osmolality and hyponatremia; G81.91 Hemiplegia, unspecified affecting right dominant side; E78.00 Pure hypercholesterolemia, unspecified; I10 Essential (primary) hypertension; E11.9 Type 2 diabetes mellitus without complications; R79.89 Other specified abnormal findings of blood chemistry; Z74.01 Bed confinement status; Z93.1 Gastrostomy status; Z86.73 Personal history of transient ischemic attack (TIA), and cerebral infarction without residual deficits
CPT/HCPCS: 36415; 70450; 76881; 76942; 80048; 80053; 81001; 82270; 82962; 83036; 83735; 83880; 83986; 85007; 85025; 85027; 85610; 85730; 87081; 87086; 87205; 87426; 89051; 92610; 97110; 97116; 97163; 97530; C9113; G0378; J1815